=== PATIENT | female | born 1990 | race Hispanic/Latino ===

== ENCOUNTER → 2018-11-05 | Outpatient (REF) | payer OTHER ==
[2018-11-05 14:14] LABS: BASO # 0.1 10^3/uL (0.0-0.2); BASO % 0.5 % (0.0-1.0); EOS # 0.1 10^3/uL (0.0-0.50); EOS % 0.9 % (0.0-3.0); HEMATOCRIT 38.5 % (36.0-47.0); HEMOGLOBIN 12.1 g/dl (12.0-15.5); LYMPH # 3.6 10^3/uL (1.5-6.5); LYMPH % 33.9 % (24.0-44.0); MEAN CORPUSCULAR HEMOGLOBIN 26.6 pg (27.0-33.0); MEAN CORPUSCULAR HGB CONC 31.4 g/dl (32.0-36.5); MEAN CORPUSCULAR VOLUME 84.6 fl (80.0-96.0); MONO # 0.5 10^3/uL (0.0-0.8); MONO % 5.1 % (0.0-5.0); NEUTROPHILS # 6.2 10^3/uL (1.8-7.7); NEUTROPHILS % 59.4 % (36.0-66.0); PLATELET COUNT, AUTOMATED 466 10^3/uL (150-450); RED BLOOD COUNT 4.55 10^6/uL (4.00-5.40); WHITE BLOOD COUNT 10.5 10^3/uL (4.0-10.0)
[2018-11-05 14:33] LABS: HEMOGLOBIN A1c 5.4 %
[2018-11-05 14:48] LABS: ALBUMIN 3.7 GM/DL (3.2-5.2); ALT/SGPT 22 U/L (12-78); BILIRUBIN,TOTAL 0.2 MG/DL (0.2-1.0); BLOOD UREA NITROGEN 7 MG/DL (7-18); CALCIUM LEVEL 8.6 MG/DL (8.5-10.1); CARBON DIOXIDE LEVEL 25 MEQ/L (21-32); CHLORIDE LEVEL 107 MEQ/L (98-107); CHOLESTEROL LEVEL 209 MG/DL (<200); CHOLESTEROL RISK RATIO 2.322 (<5); CREATININE FOR GFR 0.56 MG/DL (0.55-1.30); FREE T4 1.07 NG/DL (0.76-1.46); GLOMERULAR FILTRATION RATE > 60.0 (>60); GLUCOSE, FASTING 85 MG/DL (70-100); HDL CHOLESTEROL 90 MG/DL (>40); LDL CHOLESTEROL 102 MG/DL (<100); NON-HDL-C 119 MG/DL; POTASSIUM SERUM 4.4 MEQ/L (3.5-5.1); SODIUM LEVEL 137 MEQ/L (136-145); TOTAL 25(OH) VITAMIN D 13.9 NG/ML (30.0-100.0); TOTAL PROTEIN 7.4 GM/DL (6.4-8.2); TRIGLYCERIDES LEVEL 86 MG/DL (<150)
== END ==
LOC: M SFHCSACK 11:28
PROVIDERS: ATTEND Family Medicine
DX: Z13.220 Encounter for screening for lipoid disorders (principal); Z13.29 Encounter for screening for other suspected endocrine disorder; Z83.3 Family history of diabetes mellitus; Z13.21 Encounter for screening for nutritional disorder

== ENCOUNTER 2019-04-07 23:55 | Emergency (ER) | payer OTHER ==
[~2019-04-07] VITALS: Ht 165.1 cm; Wt 81.8 kg
[2019-04-08] MEDS ORDERED: LOTE0.5S OS (00:02)
[2019-04-08] MEDS ORDERED: NUVAMIS2 PV (00:02)
[2019-04-08] MEDS ORDERED: VITA500045 PO (00:02)
[2019-04-08 01:01] LABS: HEMATOCRIT 39.2 % (36.0-47.0); HEMOGLOBIN 12.9 g/dl (12.0-15.5); MEAN CORPUSCULAR HGB CONC 32.9 g/dl (32.0-36.5); MEAN CORPUSCULAR VOLUME 85.2 fl (80.0-96.0); PLATELET COUNT, AUTOMATED 387 10^3/uL (150-450); WHITE BLOOD COUNT 8.3 10^3/uL (4.0-10.0)
[2019-04-08 01:18] LABS: AMPHETAMINES LEVEL URINE NEGATIVE (NEGATIVE); BARBITURATES URINE NEGATIVE (NEGATIVE); BENZODIAZEPINES URINE NEGATIVE (NEGATIVE); CANNABINOIDS URINE NEGATIVE (NEGATIVE); METHADONE URINE NEGATIVE (NEGATIVE); OPIATES URINE NEGATIVE (NEGATIVE); PHENCYCLIDINE URINE NEGATIVE (NEGATIVE)
[2019-04-08 01:26] LABS: HCG, SERUM QUALITATIVE NEGATIVE (NEGATIVE)
[2019-04-08 01:32] LABS: COCAINE METABOLITE URINE NEGATIVE (NEGATIVE)
[2019-04-08 01:37] LABS: ACETAMINOPHEN LEVEL < 2.0 UG/ML (10.0-30.0); ALBUMIN 3.1 GM/DL (3.2-5.2); ALT/SGPT 13 U/L (12-78); BILIRUBIN,DIRECT 0.1 MG/DL (0.0-0.2); BILIRUBIN,TOTAL 0.3 MG/DL (0.2-1.0); BLOOD UREA NITROGEN 8 MG/DL (7-18); CALCIUM LEVEL 8.3 MG/DL (8.5-10.1); CARBON DIOXIDE LEVEL 26 MEQ/L (21-32); CHLORIDE LEVEL 110 MEQ/L (98-107); CREATININE FOR GFR 0.71 MG/DL (0.55-1.30); ETHYL ALCOHOL (ETHANOL) < 0.003 % (0.000-0.010); GLOMERULAR FILTRATION RATE > 60.0 (>60); GLUCOSE, FASTING 93 MG/DL (70-100); POTASSIUM SERUM 4.1 MEQ/L (3.5-5.1); SALICYLATE LEVEL < 1.7 MG/DL (5.0-30.0); SODIUM LEVEL 141 MEQ/L (136-145)
[2019-04-08] MEDS ORDERED: LORazepam 0.5 MG TAB PO ONE (05:15)
[2019-04-09 02:47] VITALS: BP 130/63
--- NOTE | 2019-04-09 04:56 | ECGEPIP ---
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
== END 2019-04-09 02:52 | disposition short-term general hospital (02) ==
LOC: M ED 23:55
DX: F32.9 Major depressive disorder, single episode, unspecified (principal); R45.851 Suicidal ideations; Z79.899 Other long term (current) drug therapy
CPT/HCPCS: 80048; 80076; 80307; 84443; 84703; 85027; 93005; 99284; G0480

== ENCOUNTER → 2019-07-29 | Outpatient (REF) | payer OTHER ==
[~2019-07-29] MED LIST: LOTE0.5S OS; NUVAMIS2 PV; VITA500045 PO
== END ==
LOC: M SFHCLERA 11:27
PROVIDERS: ATTEND Nurse Practitioner Family
DX: J02.9 Acute pharyngitis, unspecified (principal)

== ENCOUNTER → 2019-08-30 | Outpatient (CLI) | payer OTHER ==
--- NOTE | 2019-08-30 12:41 | REP ---
Bar spine five views: There are no comparisons. There is scoliosis convex right. 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 Right upper quadrant surgical clips. There are surgical clips inferiorly in the abdomen on the right. The bowel gas pattern is normal. There is grade 1 wedge-shaped compression deformity of the L1 vertebral body. This is age indeterminate in the absence of prior studies. The remainder of the vertebral body heights are normal. Vertebral interspacing alignment is normal. The pedicles and facets are unremarkable. The sacroiliac articulations are unremarkable. Impression: Age indeterminate grade 1 compression of the L1 vertebral body. 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 Scoliosis convex left. Right upper quadrant abdominal surgical clips. Surgical clips in the abdomen inferiorly on the right. Electronically Signed by Yasmany Velazquez MD 08/30/2019 12:33 P
== END ==
LOC: M LRY 12:10
PROVIDERS: ATTEND Nurse Practitioner Family
DX: M54.42 Lumbago with sciatica, left side (principal)
CPT/HCPCS: 72110; G0463

== ENCOUNTER → 2021-03-15 | Outpatient (REF) | payer OTHER | LOC: M SFHCLERA 16:08 | PROVIDERS: ATTEND Nurse Practitioner Family | DX: Z53.9 Procedure and treatment not carried out, unspecified reason (principal) ==

== ENCOUNTER → 2021-03-17 | Outpatient (CLI) | payer OTHER ==
[2021-03-17 20:01] LABS: HCG, SERUM QUALITATIVE NEGATIVE (NEGATIVE)
[2021-03-17 20:05] LABS: INR 1.01; PROTHROMBIN TIME 13.8 SECONDS (12.7-14.5)
[2021-03-17 20:08] LABS: ALBUMIN 3.6 GM/DL (3.2-5.2); ALT/SGPT 61 U/L (12-78); BILIRUBIN,TOTAL 0.5 MG/DL (0.2-1.0); BLOOD UREA NITROGEN 10 MG/DL (7-18); CALCIUM LEVEL 8.5 MG/DL (8.5-10.1); CARBON DIOXIDE LEVEL 31 MEQ/L (21-32); CHLORIDE LEVEL 108 MEQ/L (98-107); CREATININE FOR GFR 0.57 MG/DL (0.55-1.30); GLOMERULAR FILTRATION RATE > 60.0 (>60); GLUCOSE, FASTING 89 MG/DL (70-100); POTASSIUM SERUM 3.9 MEQ/L (3.5-5.1); SODIUM LEVEL 142 MEQ/L (136-145); THYROID STIMULATING HORMONE 0.955 uIU/ML (0.358-3.740); TOTAL PROTEIN 6.7 GM/DL (6.4-8.2)
[2021-03-17 20:11] LABS: TOTAL 25(OH) VITAMIN D 16.2 NG/ML (30.0-100.0)
[2021-03-17 20:20] LABS: HEMATOCRIT 37.6 % (36.0-47.0); HEMOGLOBIN 11.7 g/dl (12.0-15.5); MEAN CORPUSCULAR HEMOGLOBIN 27.4 pg (27.0-33.0); MEAN CORPUSCULAR HGB CONC 31.1 g/dl (32.0-36.5); MEAN CORPUSCULAR VOLUME 88.1 fl (80.0-96.0); PLATELET COUNT, AUTOMATED 384 10^3/uL (150-450); RED BLOOD COUNT 4.27 10^6/uL (4.00-5.40); WHITE BLOOD COUNT 9.9 10^3/uL (4.0-10.0)
== END ==
LOC: M WUC 15:22
PROVIDERS: ATTEND Nurse Practitioner Family
DX: N93.9 Abnormal uterine and vaginal bleeding, unspecified (principal)

== ENCOUNTER → 2021-04-13 | Outpatient (CLI) | payer OTHER ==
--- NOTE | 2021-04-13 08:33 | REP ---
INDICATION: ABN LABS. COMPARISON: None. TECHNIQUE: Real-time sonographic evaluation of right upper quadrant performed. FINDINGS: Patient has had a prior cholecystectomy.. There is no intrahepatic or extrahepatic biliary dilatation, common bile duct measures 4 mm in maximum diameter. The liver demonstrates homogeneous echotexture with no gross mass. The pancreas demonstrates homogeneous echotexture with no gross mass. The right kidney demonstrates no hydronephrosis, with a normal size of 10.8 cm in length. No free fluid is seen. IMPRESSION: Negative right upper quadrant ultrasound status post cholecystectomy. <Electronically signed by Yasmany Ash > 04/13/21 0825
[2021-04-13 09:24] LABS: ALBUMIN 3.6 GM/DL (3.2-5.2); BILIRUBIN,DIRECT 0.2 MG/DL (0.0-0.2); BILIRUBIN,TOTAL 0.4 MG/DL (0.2-1.0); TOTAL PROTEIN 7.1 GM/DL (6.4-8.2)
== END ==
LOC: M RAD 07:54 → M LAB 07:54
PROVIDERS: ATTEND Nurse Practitioner Family
DX: R74.8 Abnormal levels of other serum enzymes (principal); Z90.49 Acquired absence of other specified parts of digestive tract

== ENCOUNTER → 2021-06-11 | Outpatient (CLI) | payer OTHER ==
--- NOTE | 2021-06-11 15:36 | REP ---
INDICATION: IRREGULAR BLEEDING COMPARISON: None. TECHNIQUE: Transabdominal pelvic ultrasound followed by transvaginal examination for better evaluation of the endometrium and adnexa with color Doppler evaluation of the ovaries. FINDINGS: Bladder is unremarkable and measures 4.6 x 4.2 x 5.0 cm. Heterogeneous anteverted uterus measures 8.2 x 4.2 x 4.8 cm. The endometrial complex is heterogeneous and measures 12 mm thickness. 1.8 cm anterior intramural fibroid identified. Bilateral ovaries are normal in appearance and vascularity without evidence for torsion. Right ovary measures 2.7 x 1.5 x 1.8 cm; R I = 0.69. Left ovary measures 3.1 x 1.7 x 2.6 cm; R I = 0.61. No pelvic fluid or adnexal mass lesion. IMPRESSION: 1. A 1.8 cm anterior intramural fibroid. 2. Thickened heterogeneous endometrial complex likely related to menstrual cycle. <Electronically signed by Ac Liu > 06/11/21 [id number]
== END ==
LOC: M WHC 14:24
PROVIDERS: ATTEND Specialist
DX: N92.6 Irregular menstruation, unspecified (principal); N85.4 Malposition of uterus

== ENCOUNTER → 2021-10-13 | Outpatient (REF) | payer BC, OTHER ==
[~2021-10-13] MED LIST changes: +NITR100C2
== END ==
LOC: M SFHCLERA 11:08
PROVIDERS: ATTEND Family Medicine
DX: R39.15 Urgency of urination (principal); R35.0 Frequency of micturition

== ENCOUNTER 2021-10-14 13:18 | Emergency (ER) | payer BC, OTHER ==
[~2021-10-14] VITALS: Ht 162.6 cm; Wt 72.9 kg
[2021-10-14 13:18] VITALS: BP 126/86
[~2021-10-14 13:18] MED LIST changes: -NITR100C2
[2021-10-14] MEDS ORDERED: NITR100C2 (13:25)
[2021-10-14 14:41] LABS: APPEARANCE, URINE HAZY (CLEAR); BACTERIA, URINE AUTO 1+ (NEGATIVE); BILIRUBIN, URINE AUTO NEGATIVE (NEGATIVE); BLOOD, URINE BLOOD NEGATIVE (NEGATIVE); COLOR, URINE YELLOW (YELLOW); GLUCOSE, URINE (UA) AUTO NEGATIVE (NEGATIVE); KETONE, URINE AUTO TRACE mg/dL (NEGATIVE); LEUKOCYTE ESTERASE, URINE AUTO NEGATIVE (NEGATIVE); MUCUS, URINE SMALL (NEGATIVE); NITRITE, URINE AUTO NEGATIVE (NEGATIVE); PROTEIN, URINE AUTO NEGATIVE (NEGATIVE); RBC, URINE AUTO 6 /HPF (0-3); SPECIFIC GRAVITY URINE AUTO 1.015 (1.002-1.035); SQUAMOUS EPITHELIAL CELL UR AU 6 /HPF (0-6); UROBILINOGEN, URINE AUTO 0.2 mg/dL (0.0-2.0); WBC, URINE AUTO 2 /HPF (0-3)
[2021-10-14 14:47] LABS: BASO % 0.4 % (0.0-1.0); EOS % 0.1 % (0.0-3.0); HEMATOCRIT 41.7 % (36.0-47.0); HEMOGLOBIN 13.5 g/dl (12.0-15.5); LYMPH # 2.9 10^3/uL (1.5-5.0); LYMPH % 26.2 % (24.0-44.0); MEAN CORPUSCULAR HEMOGLOBIN 27.7 pg (27.0-33.0); MEAN CORPUSCULAR HGB CONC 32.4 g/dl (32.0-36.5); MEAN CORPUSCULAR VOLUME 85.6 fl (80.0-96.0); MONO # 0.4 10^3/uL (0.0-0.8); MONO % 3.8 % (2.0-8.0); NEUTROPHILS # 7.8 10^3/uL (1.5-8.5); NEUTROPHILS % 69.1 % (36.0-66.0); PLATELET COUNT, AUTOMATED 443 10^3/uL (150-450); RED BLOOD COUNT 4.87 10^6/uL (4.00-5.40); WHITE BLOOD COUNT 11.2 10^3/uL (4.0-10.0)
[2021-10-14 15:16] LABS: BLOOD UREA NITROGEN 6 MG/DL (7-18); CALCIUM LEVEL 8.8 MG/DL (8.5-10.1); CARBON DIOXIDE LEVEL 29 MEQ/L (21-32); CHLORIDE LEVEL 106 MEQ/L (98-107); CREATININE FOR GFR 0.63 MG/DL (0.55-1.30); GLOMERULAR FILTRATION RATE > 60.0 (>60); GLUCOSE, FASTING 84 MG/DL (70-100); POTASSIUM SERUM 3.9 MEQ/L (3.5-5.1); SODIUM LEVEL 139 MEQ/L (136-145)
[2021-10-14 17:10] LABS: GC DNA AMPLIFICATION NEGATIVE (NEGATIVE)
== END 2021-10-14 16:13 | disposition home or self-care (01) ==
LOC: M ED 13:18
DX: R35.0 Frequency of micturition (principal); R20.2 Paresthesia of skin; M54.50 Low back pain, unspecified; F10.10 Alcohol abuse, uncomplicated; E55.9 Vitamin D deficiency, unspecified; Z88.1 Allergy status to other antibiotic agents

== ENCOUNTER → 2021-10-26 | Outpatient (REF) | payer BC ==
[~2021-10-26] MED LIST changes: +NITR100C2
[2021-10-26 17:40] LABS: APPEARANCE, URINE HAZY (CLEAR); BACTERIA, URINE AUTO NEGATIVE (NEGATIVE); BILIRUBIN, URINE AUTO NEGATIVE (NEGATIVE); BLOOD, URINE BLOOD 1+ (NEGATIVE); COLOR, URINE YELLOW (YELLOW); GLUCOSE, URINE (UA) AUTO NEGATIVE (NEGATIVE); KETONE, URINE AUTO NEGATIVE (NEGATIVE); LEUKOCYTE ESTERASE, URINE AUTO NEGATIVE (NEGATIVE); MUCUS, URINE SMALL (NEGATIVE); NITRITE, URINE AUTO NEGATIVE (NEGATIVE); PROTEIN, URINE AUTO NEGATIVE (NEGATIVE); RBC, URINE AUTO 1 /HPF (0-3); SPECIFIC GRAVITY URINE AUTO 1.028 (1.002-1.035); SQUAMOUS EPITHELIAL CELL UR AU 3 /HPF (0-6); UROBILINOGEN, URINE AUTO 0.2 mg/dL (0.0-2.0); WBC, URINE AUTO 1 /HPF (0-3)
== END ==
LOC: M SMT 17:07
PROVIDERS: ATTEND Nurse Practitioner Women's Health
DX: R35.0 Frequency of micturition (principal)

== ENCOUNTER → 2021-10-27 | Outpatient (REF) | payer BC ==
[~2021-10-27] MED LIST changes: +D-101000 PO; +OXYB5TAB10 PO
== END ==
LOC: M LAB REF 12:04
PROVIDERS: ATTEND Physician Assistant
DX: R50.9 Fever, unspecified (principal); R53.83 Other fatigue

== ENCOUNTER → 2021-11-09 | Outpatient (CLI) | payer BC ==
[~2021-11-09] MED LIST changes: -D-101000 PO; -OXYB5TAB10 PO
== END ==
LOC: M RAD 15:38
PROVIDERS: ATTEND Nurse Practitioner Family
DX: R35.0 Frequency of micturition (principal)

== ENCOUNTER → 2021-11-22 | Outpatient (CLI) | payer BC, OTHER ==
[~2021-11-22] MED LIST changes: +D-101000 PO; +OXYB5TAB10 PO
== END ==
LOC: M LABSMTC 09:23
PROVIDERS: ATTEND Anesthesiology
DX: Z20.828 Contact with and (suspected) exposure to other viral communicable diseases (principal); Z11.59 Encounter for screening for other viral diseases

== ENCOUNTER 2021-11-26 13:46 | Day surgery (SDC) | payer BC ==
[~2021-11-26] VITALS: Ht 162.6 cm; Wt 72.6 kg
[~2021-11-26 13:46] MED LIST changes: +LIDOCAINE 1% MDV 20ML VIAL SQ PRN; +LIDOCAINE 2% 100MG/5ML SDV (FOR ANES.) As Ordered ONE; +LR 1,000 ML IV ONE; +MIDAZOLAM INJ 2MG/2ML VIAL (J2250 PER 1MG) As Ordered ONE; +ONDANSETRON 4MG/2ML VIAL As Ordered ONE; +dexameTHASONE 4 MG/ML 1ML VIAL (J1100 PER 1MG) As Ordered ONE; +fentaNYL 100 MCG/2 ML INJECTION As Ordered ONE; +propofoL 200 MG/20 ML VIAL As Ordered ONE
[2021-11-26] MEDS ORDERED: LIDOCAINE 1% SDV 30ML VIAL As Ordered ONE (14:36)
[2021-11-26] MEDS ORDERED: KETOROLAC 60MG 2ML VIAL As Ordered ONE (15:05)
[2021-11-26 15:06] LABS: HEMATOCRIT 37.5 % (36.0-47.0); HEMOGLOBIN 12.1 g/dl (12.0-15.5); MEAN CORPUSCULAR HEMOGLOBIN 27.6 pg (27.0-33.0); MEAN CORPUSCULAR HGB CONC 32.3 g/dl (32.0-36.5); MEAN CORPUSCULAR VOLUME 85.6 fl (80.0-96.0); PLATELET COUNT, AUTOMATED 398 10^3/uL (150-450); RED BLOOD COUNT 4.38 10^6/uL (4.00-5.40); WHITE BLOOD COUNT 11.6 10^3/uL (4.0-10.0)
[2021-11-26] MEDS ORDERED: oxyCODONE 5MG TAB PO PRN (15:50)
[2021-11-26] MEDS ORDERED: PERCOCET 5MG/325MG TAB PO PRN (15:50)
[2021-11-26] MEDS ORDERED: HYDROMORPHONE HCL 0.5 MG/ 0.5 ML SYRINGE (J1170 PER 1) IV PRN (15:50)
[2021-11-26] MEDS ORDERED: LR 1,000 ML IV SCH ×2 (15:50)
[2021-11-26] MEDS ORDERED: ONDANSETRON 4MG/2ML VIAL IV PRN (15:50)
[2021-11-26] MEDS ORDERED: fentaNYL 100 MCG/2 ML INJECTION IV PRN (15:50)
[2021-11-26] MEDS ORDERED: GLYCOPYRROLATE INJ 0.2 MG/ML 2 ML VIAL IV SCH (16:45)
[2021-11-26 17:20] VITALS: BP 140/81
== END 2021-11-26 17:38 | disposition home or self-care (01) ==
LOC: M SDC 13:46
PROVIDERS: ATTEND Specialist
DX: N92.0 Excessive and frequent menstruation with regular cycle (principal); E78.9 Disorder of lipoprotein metabolism, unspecified; F41.9 Anxiety disorder, unspecified; I73.00 Raynaud's syndrome without gangrene; N32.81 Overactive bladder; Z88.8 Allergy status to other drugs, medicaments and biological substances; Z91.018 Allergy to other foods; Z79.3 Long term (current) use of hormonal contraceptives; Z79.51 Long term (current) use of inhaled steroids
CPT/HCPCS: 36415; 58563; 81025; 85027; 88305; J1100; J1885; J2250; J2405; J3010

== ENCOUNTER → 2023-08-08 | Outpatient (REF) ==
[~2023-08-08] MED LIST changes: +ETON1VAG7 PV; -LIDOCAINE 1% MDV 20ML VIAL SQ PRN; -LIDOCAINE 2% 100MG/5ML SDV (FOR ANES.) As Ordered ONE; -LR 1,000 ML IV ONE; -MIDAZOLAM INJ 2MG/2ML VIAL (J2250 PER 1MG) As Ordered ONE; -NUVAMIS2 PV; -ONDANSETRON 4MG/2ML VIAL As Ordered ONE; -OXYB5TAB10 PO; +OXYB5TAB11 PO; -dexameTHASONE 4 MG/ML 1ML VIAL (J1100 PER 1MG) As Ordered ONE; -fentaNYL 100 MCG/2 ML INJECTION As Ordered ONE; -propofoL 200 MG/20 ML VIAL As Ordered ONE
== END ==
LOC: M EMP 10:53
PROVIDERS: ATTEND Family Medicine
DX: Z11.52 Encounter for screening for COVID-19 (principal)

== ENCOUNTER → 2023-08-24 | Outpatient (REF) | LOC: M EMP 15:53 | PROVIDERS: ATTEND Family Medicine | DX: Z11.52 Encounter for screening for COVID-19 (principal) ==

== ENCOUNTER 2024-04-10 08:47 | Day surgery (SDC) | payer BC ==
[~2024-04-10] VITALS: Ht 162.6 cm; Wt 72.4 kg
[~2024-04-10 08:47] MED LIST changes: +ACETAMINOPHEN 1000MG 100ML IV BAG As Ordered ONE; +IBUP200C26 PO; +LAMI25CH PO; +LIDOCAINE 2% 100MG/5ML SDV (FOR ANES.) As Ordered ONE; +MIDAZOLAM INJ 2MG/2ML VIAL As Ordered ONE; +ONDA-83 PO; +ONDANSETRON 4MG 2ML VIAL As Ordered ONE; -OXYB5TAB11 PO; +OXYB5TAB14 PO; +REST0.05 OU; +ROCURONIUM BROMIDE 50MG/5ML VIAL As Ordered ONE; +THERTAB52 PO; +TIZA2CAP PO; +WELLTAB38 PO; +fentaNYL 100 MCG/2 ML INJECTION As Ordered ONE; +propofoL 200 MG/20 ML VIAL As Ordered ONE
[2024-04-10] MEDS ORDERED: LR 1,000 ML IV SCH ×2 (08:55→12:10)
[2024-04-10 09:32] LABS: HEMATOCRIT 38.2 % (36.0-47.0); HEMOGLOBIN 12.4 g/dl (12.0-15.5); MEAN CORPUSCULAR HEMOGLOBIN 28.9 pg (27.0-33.0); MEAN CORPUSCULAR HGB CONC 32.5 g/dl (32.0-36.5); PLATELET COUNT, AUTOMATED 357 10^3/uL (150-450); RED BLOOD COUNT 4.29 10^6/uL (4.00-5.40); WHITE BLOOD COUNT 10.9 10^3/uL (4.0-10.0)
[2024-04-10] MEDS ORDERED: BUSP10TA PO (09:36)
[2024-04-10] MEDS ORDERED: HYDR1CAP25 PO (09:36)
[2024-04-10] MEDS ORDERED: [UNRECOGNIZED DRUG - CODE] PO (09:39)
[2024-04-10] MEDS: ceFAZolin SOD 2 GM in IV 1 EA IV ONE (10:20)
[2024-04-10] MEDS ORDERED: SUGAMMADEX SODIUM 500 MG/5 ML VIAL (BRIDION) As Ordered ONE (10:41)
[2024-04-10] MEDS ORDERED: KETOROLAC 60MG 2ML VIAL As Ordered ONE (10:41)
[2024-04-10] MEDS ORDERED: dexmedeTOMIDine (4MCG/ML)200MCG/50ML BTL (PRECEDEX) As Ordered ONE (10:44)
[2024-04-10] MEDS ORDERED: HYDROmorphone HCL 2MG/ML 1ML VIAL As Ordered ONE (10:53)
[2024-04-10] MEDS ORDERED: ONDANSETRON 4MG 2ML VIAL IV PRN (12:10)
[2024-04-10] MEDS ORDERED: fentaNYL 100 MCG/2 ML INJECTION IV PRN (12:10)
[2024-04-10] MEDS ORDERED: OXYC1TAB23 PO (12:38)
[2024-04-10] MEDS ORDERED: IBUP-1022 PO (12:38)
[2024-04-10] MEDS ORDERED: PERCOCET 5MG/325MG TAB PO PRN (13:00)
[2024-04-10 13:18] VITALS: BP 128/72; TEMP 97.9; O2SAT 100
== END 2024-04-10 13:54 | disposition home or self-care (01) ==
LOC: M SDC 08:47
PROVIDERS: ATTEND Specialist
DX: N80.03 Adenomyosis of the uterus (principal); N92.0 Excessive and frequent menstruation with regular cycle; N94.6 Dysmenorrhea, unspecified; K66.0 Peritoneal adhesions (postprocedural) (postinfection); N32.89 Other specified disorders of bladder; I73.00 Raynaud's syndrome without gangrene; Z79.899 Other long term (current) drug therapy; Z98.891 History of uterine scar from previous surgery; G43.909 Migraine, unspecified, not intractable, without status migrainosus; Z91.018 Allergy to other foods; Z88.8 Allergy status to other drugs, medicaments and biological substances; Z90.89 Acquired absence of other organs; Z90.49 Acquired absence of other specified parts of digestive tract; H04.129 Dry eye syndrome of unspecified lacrimal gland; Z80.0 Family history of malignant neoplasm of digestive organs; Z80.42 Family history of malignant neoplasm of prostate
CPT/HCPCS: 36415; 58571; 81025; 85027; 86850; 86900; 86901; 88307; J0131; J0665; J0690; J1100; J1170; J1885; J2250; J2405; J3010; S2900

== ENCOUNTER → 2024-05-16 | Outpatient (REF) | payer BC ==
[~2024-05-16] MED LIST changes: -ACETAMINOPHEN 1000MG 100ML IV BAG As Ordered ONE; +BUSP10TA PO; +HYDR1CAP25 PO; +IBUP-1022 PO; -LIDOCAINE 2% 100MG/5ML SDV (FOR ANES.) As Ordered ONE; -MIDAZOLAM INJ 2MG/2ML VIAL As Ordered ONE; -ONDANSETRON 4MG 2ML VIAL As Ordered ONE; +OXYC1TAB23 PO; -ROCURONIUM BROMIDE 50MG/5ML VIAL As Ordered ONE; +[UNRECOGNIZED DRUG - CODE] PO; -fentaNYL 100 MCG/2 ML INJECTION As Ordered ONE; -propofoL 200 MG/20 ML VIAL As Ordered ONE
[2024-05-16 13:00] LABS: TOTAL PROTEIN,RANDOM URINE 17.3 MG/DL (0.0-14.0)
[2024-05-16 13:05] LABS: CREATININE,RANDOM URINE 226.7 MG/DL
[2024-05-16 13:06] LABS: ALBUMIN 4.3 G/DL (3.2-5.2); ALKALINE PHOSPHATASE 80 U/L (46-116); ALT/SGPT 28 U/L (7.0-40); AST/SGOT 17 U/L (<34); BILIRUBIN,DIRECT 0.2 MG/DL (<0.4); BILIRUBIN,TOTAL 0.6 MG/DL (0.3-1.2); BLOOD UREA NITROGEN 8 MG/DL (9-23); CALCIUM LEVEL 9.5 MG/DL (8.5-10.1); CARBON DIOXIDE LEVEL 30 MMOL/L (20-31); CHLORIDE LEVEL 108 MMOL/L (98-107); CREATININE FOR GFR 0.69 MG/DL (0.55-1.30); GLOMERULAR FILTRATION RATE > 60.0 (>60); GLUCOSE, FASTING 85 MG/DL (60-100); POTASSIUM SERUM 4.1 MMOL/L (3.5-5.1); SODIUM LEVEL 141 MMOL/L (136-145)
[2024-05-16 13:08] LABS: COMPLEMENT C4 30.7 MG/DL (12-36)
[2024-05-16 13:16] LABS: APPEARANCE, URINE HAZY (CLEAR); BACTERIA, URINE AUTO 1+ (NEGATIVE); BILIRUBIN, URINE AUTO NEGATIVE (NEGATIVE); BLOOD, URINE BLOOD 2+ (NEGATIVE); COLOR, URINE YELLOW (YELLOW); GLUCOSE, URINE (UA) AUTO NEGATIVE (NEGATIVE); KETONE, URINE AUTO NEGATIVE (NEGATIVE); LEUKOCYTE ESTERASE, URINE AUTO 1+ (NEGATIVE); MUCUS, URINE SMALL (NEGATIVE); NITRITE, URINE AUTO NEGATIVE (NEGATIVE); PROTEIN, URINE AUTO NEGATIVE (NEGATIVE); RBC, URINE AUTO 5 /HPF (0-3); SPECIFIC GRAVITY URINE AUTO 1.018 (1.002-1.035); SQUAMOUS EPITHELIAL CELL UR AU 7 /HPF (0-6); UROBILINOGEN, URINE AUTO 0.2 mg/dL (0.0-2.0); WBC, URINE AUTO 6 /HPF (0-3)
[2024-05-16 13:28] LABS: BASO # 0.1 10^3/uL (0.0-0.2); BASO % 0.6 % (0.0-1.0); EOS # 0.1 10^3/uL (0.0-0.5); EOS % 1.2 % (0.0-3.0); HEMATOCRIT 44.8 % (36.0-47.0); HEMOGLOBIN 14.5 g/dl (12.0-15.5); LYMPH # 3.5 10^3/uL (1.5-5.0); LYMPH % 34.1 % (24.0-44.0); MEAN CORPUSCULAR HEMOGLOBIN 28.4 pg (27.0-33.0); MEAN CORPUSCULAR HGB CONC 32.4 g/dl (32.0-36.5); MEAN CORPUSCULAR VOLUME 87.7 fl (80.0-96.0); MONO # 0.5 10^3/uL (0.0-0.8); MONO % 4.4 % (2.0-8.0); NEUTROPHILS # 6.1 10^3/uL (1.5-8.5); NEUTROPHILS % 59.3 % (36.0-66.0); PLATELET COUNT, AUTOMATED 476 10^3/uL (150-450); RED BLOOD COUNT 5.11 10^6/uL (4.00-5.40); WHITE BLOOD COUNT 10.3 10^3/uL (4.0-10.0)
== END ==
LOC: M SFHCRHEU 10:31
PROVIDERS: ATTEND Internal Medicine
DX: L63.9 Alopecia areata, unspecified (principal)

== ENCOUNTER → 2024-07-03 | Outpatient (CLI) | payer BC ==
[~2024-07-03] MED LIST changes: +[UNRECOGNIZED DRUG - CODE] PO; -[UNRECOGNIZED DRUG - CODE] PO
== END ==
LOC: M SLEEP HO 10:08
PROVIDERS: ATTEND Internal Medicine
DX: R06.83 Snoring (principal); R53.82 Chronic fatigue, unspecified

== ENCOUNTER 2024-09-27 08:25 | Day surgery (SDC) | payer BC ==
[~2024-09-27] VITALS: Ht 162.6 cm; Wt 77.6 kg
[~2024-09-27 08:25] MED LIST changes: +HYDR50CA2 PO; +TIZA2TA PO
[2024-09-27] MEDS ORDERED: LIDOCAINE 2% JELLY 6ML SYRINGE As Ordered ONE (10:17)
[2024-09-27 10:35] VITALS: TEMP 97
[2024-09-27 10:53] VITALS: BP 122/74; O2SAT 100
[2024-09-27] MEDS ORDERED: propofoL 200 MG/20 ML VIAL As Ordered ONE (11:04)
[2024-09-27] MEDS ORDERED: LIDOCAINE 2% 100MG/5ML SDV (FOR ANES.) As Ordered ONE (11:04)
== END 2024-09-27 10:54 | disposition home or self-care (01) ==
LOC: M OPP 08:25
PROVIDERS: ATTEND Surgery
DX: Z12.11 Encounter for screening for malignant neoplasm of colon (principal); D12.3 Benign neoplasm of transverse colon; K64.0 First degree hemorrhoids; K57.30 Diverticulosis of large intestine without perforation or abscess without bleeding; Z88.8 Allergy status to other drugs, medicaments and biological substances; Z91.018 Allergy to other foods; Z79.899 Other long term (current) drug therapy; F17.290 Nicotine dependence, other tobacco product, uncomplicated

== ENCOUNTER 2025-05-01 09:07 | Emergency (ER) | payer BC ==
[~2025-05-01] VITALS: Ht 162.6 cm; Wt 71.4 kg
[~2025-05-01 09:07] MED LIST changes: -IBUP-1022 PO; +IBUP600T42 PO
[2025-05-01] MEDS ORDERED: METH-1165 PO (10:32)
[2025-05-01] MEDS ORDERED: MEDR4PAK PO (10:32)
[2025-05-01] MEDS: ACETAMINOPHEN 325 MG TAB PO ONE (10:39)
[2025-05-01] MEDS: KETOROLAC 30 MG/ML 1 ML VIAL IM ONE (10:40)
[2025-05-01 10:46] VITALS: BP 138/73; TEMP 97.8; O2SAT 100
== END 2025-05-01 10:59 | disposition home or self-care (01) ==
LOC: M ED 09:07
DX: M43.6 Torticollis (principal); F32.A Depression, unspecified; F41.9 Anxiety disorder, unspecified; Z79.899 Other long term (current) drug therapy; Z79.1 Long term (current) use of non-steroidal anti-inflammatories (NSAID); Z88.8 Allergy status to other drugs, medicaments and biological substances; Z91.018 Allergy to other foods
CPT/HCPCS: 96372; 99283; J1885